=== PATIENT | male | born 1965 | race Caucasian/White ===

== ENCOUNTER 2018-09-27 00:57 | Inpatient (IN) | payer MEDICARE ==
[~2018-09-27] VITALS: Ht 177.8 cm; Wt 104.8 kg
[~2018-09-27 00:57] MED LIST: AMLO5TAB4 PO; BACL10TA PO; DEXT20CA PO; DOCU100C28 PO; ESCITALOPRAM OX10 MG PO; GALA4TAB5 PO; IBUP200T44 PO; LISI-130 PO; LISI1TAB7 PO; METO50TA6 PO; POLY119P4 PO; TIZA4CAP3 PO
--- NOTE | 2018-09-27 01:16 | PHYS DOC ---
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 Patient states that he has had a constant midsternal pressure-like sensation for the past three days. Patient states that the pain radiates to his back and down his right leg. Patient currently rates his pain to be 6/10. Patient states that his chest pain is associated with shortness of breath on exertion. Denies nausea, vomiting, leg pain, and palpitations. Patient has a history of hypertension and has not taken his medication today. Patient states that he has not slept in two days. Patient admits to having suicidal thoughts over the past two days. Patient states that he pulled on his 9mm gun and placed it in his mouth two days ago. Patient reports having the thought of driving his vehicle into a semi-truck this afternoon. Patient currently admits to feeling suicidal. Patient denies having intense suicidal thoughts in the past. Denies homicidal ideation. Patient denies any new life stressors. Patient states that was taking 20mg Adderall twice a day for the past three years. Patient states that he recently saw his primary care physician who lessened his dose to 15mg twice daily as the patient was requesting to come off of Adderall. Patient states that he did not fill the 15mg prescription and has not had any Adderall in six days. No personal or family history of blood clots. Review of Systems Review of Systems Constitutional: Denies fever or chills Eyes: Denies change in visual acuity or eye pain HENT: Denies nasal congestion or sore throat Respiratory: Reports chronic dry cough. Reports shortness of breath. Cardiovascular: Reports chest pain. Denies palpitations. GI: Denies abdominal pain, nausea, vomiting, or diarrhea : Denies dysuria or hematuria Musculoskeletal: Denies joint pain. Reports back pain Integument: Denies rash or skin lesions Neurologic: Denies focal weakness or sensory changes Psychiatric: Reports suicidal ideation. Denies homicidal ideation. Complete systems were reviewed and found to be within normal limits, except as documented in this note. Current Medications Current Medications Current Medications Medications (Trade) Dose Ordered Sig/Danie Start Time Stop Time Status Last Admin Dose Admin Aspirin (Latoya Aspirin) 325 mg 1X ONCE 09/27/18 01:30 09/27/18 01:31 DC 09/27/18 02:06 325 MG Lorazepam (Ativan) 1 mg 1X ONCE 09/27/18 01:45 09/27/18 01:46 DC 09/27/18 02:06 1 MG Sodium Chloride 1,000 ml @ 1,000 mls/hr 1X ONCE 09/27/18 01:45 09/27/18 02:44 DC 09/27/18 02:05 1,000 MLS/HR Allergies Allergies Allergies Coded Allergies Type Severity Reaction Last Updated Verified codeine Allergy Intermediate 12/22/15 Yes Physical Exam Physical Exam Constitutional: Well developed, well nourished, anxious appearing. HENT: Normocephalic, atraumatic, oropharynx moist, nose normal. Eyes: PERRL, EOMI, conjunctiva normal. Neck: Normal range of motion, no tenderness, supple, no stridor. Cardiovascular: Tachycardic. Regular rhythm, no murmur. Distal pulses are intact bilaterally. Lungs & Thorax: Bilateral breath sounds clear to auscultation. No chest wall tenderness on palpation. Abdomen: Soft, no tenderness. No rebound, guarding or rigidity. Skin: Warm, dry, no erythema, no rash. Back: No midline tenderness, no CVA tenderness. Extremities: No tenderness, no cyanosis, ROM intact, no edema. Neurologic: Alert and oriented X3, normal motor function, normal sensory function, no focal deficits noted. Psychologic: Flat affect. Tearful. Patient reports suicidal ideation with plan. Denies homicidal ideation. Current Patient Data Vital Signs Vital Signs Date Time Temp Pulse Resp B/P (MAP) Pulse Ox O2 Delivery O2 Flow Rate FiO2 09/27/18 01:32 98 164/104 (124) Room Air 09/27/18 01:07 98.3 18 99 98.3 Lab Values Laboratory Tests Test 09/27/18 01:15 09/27/18 01:25 White Blood Count 8.8 x10^3/uL (4.0-11.0) Red Blood Count 4.96 x10^6/uL (4.30-5.70) Hemoglobin 16.4 g/dL (13.0-17.5) Hematocrit 45.6 % (39.0-53.0) Mean Corpuscular Volume 92 fL (79-100) Mean Corpuscular Hemoglobin 33 pg (25-35) Mean Corpuscular Hemoglobin Concent 36 g/dL (31-37) Red Cell Distribution Width 12.8 % (11.5-14.5) Platelet Count 233 x10^3/uL (140-400) Neutrophils (%) (Auto) 54 % (31-73) Lymphocytes (%) (Auto) 35 % (24-48) Monocytes (%) (Auto) 8 % (0-9) Eosinophils (%) (Auto) 2 % (0-3) Basophils (%) (Auto) 1 % (0-3) Neutrophils # (Auto) 4.8 x10^3uL (1.8-7.7) Lymphocytes # (Auto) 3.1 x10^3/uL (1.0-4.8) Monocytes # (Auto) 0.7 x10^3/uL (0.0-1.1) Eosinophils # (Auto) 0.2 x10^3/uL (0.0-0.7) Basophils # (Auto) 0.1 x10^3/uL (0.0-0.2) Prothrombin Time 12.3 SEC (11.7-14.0) Prothrombin Time INR 0.9 (0.8-1.1) D-Dimer (Lairssa) 0.36 ug/mlFEU (0.00-0.50) Sodium Level 132 mmol/L (136-145) L Potassium Level 4.0 mmol/L (3.5-5.1) Chloride Level 93 mmol/L (98-107) L Carbon Dioxide Level 22 mmol/L (21-32) Anion Gap 17 (6-14) H Blood Urea Nitrogen 10 mg/dL (8-26) Creatinine 1.0 mg/dL (0.7-1.3) Estimated GFR (Cockcroft-Gault) 78.2 BUN/Creatinine Ratio 10 (6-20) Glucose Level 498 mg/dL (70-99) H Hemoglobin A1c 12.9 % (4.8-5.6) H Calcium Level 8.2 mg/dL (8.5-10.1) L Magnesium Level 2.2 mg/dL (1.8-2.4) Total Bilirubin 0.3 mg/dL (0.2-1.0) Aspartate Amino Transferase (AST) 24 U/L (15-37) Alanine Aminotransferase (ALT) 26 U/L (16-63) Alkaline Phosphatase 86 U/L (46-116) Creatine Kinase 113 U/L (39-308) Creatine Kinase MB (Mass) 1.5 ng/mL (0.0-3.6) Creatine Kinase MB Relative Index 1.3 % (0-4) Troponin I Quantitative < 0.017 ng/mL (0.000-0.055) IN-Mrr-X-Type Natriuretic Peptide 31 pg/mL (0-124) Total Protein 7.0 g/dL (6.4-8.2) Albumin 3.6 g/dL (3.4-5.0) Albumin/Globulin Ratio 1.1 (1.0-1.7) Lipase 195 U/L (73-393) Salicylates Level 4.3 mg/dL (2.8-20.0) Salicylate Last Dose Date Unk Salicylate Last Dose Time Unk Acetaminophen Level < 2 mcg/ml (10-30) L Acetaminophen Last Dose Date Unk Acetaminophen Last Dose Time Unk Ethyl Alcohol Level < 10 mg/dL (0-10) Urine Collection Type Unknown Urine Color Yellow Urine Clarity Clear Urine pH 6.0 Urine Specific [place] >=1.030 Urine Protein Negative mg/dL (NEG-TRACE) Urine Glucose (UA) >=1000 mg/dL (NEG) Urine Ketones (Stick) Negative mg/dL (NEG) Urine Blood Negative (NEG) Urine Nitrite Negative (NEG) Urine Bilirubin Negative (NEG) Urine Urobilinogen Dipstick 0.2 mg/dL (0.2 mg/dL) Urine Leukocyte Esterase Negative (NEG) Urine RBC 0 /HPF (0-2) Urine WBC 0 /HPF (0-4) Urine Squamous Epithelial Cells Few /LPF Urine Bacteria 0 /HPF (0-FEW) Urine Opiates Screen Neg (NEG) Urine Methadone Screen Neg (NEG) Urine Barbiturates Neg (NEG) Urine Phencyclidine Screen Neg (NEG) Urine Amphetamine/Methamphetamine Neg (NEG) Urine Benzodiazepines Screen Neg (NEG) Urine Cocaine Screen Neg (NEG) Urine Cannabinoids Screen Neg (NEG) Urine Ethyl Alcohol Neg (NEG) Laboratory Tests 09/27/18 01:15 Laboratory Tests 09/27/18 01:15 EKG EKG @0107 Sinus tachycardia at 105bpm, NO ST elevation, Low voltage QRS. No significant change when compared to ECG performed on 07/12/17. Radiology/Procedures Radiology/Procedures PROCEDURE: CHEST PA & LATERAL EXAM: PA and Lateral Views of the Chest DATE: 09/27/2018 2:01 AM INDICATION: CHEST PAIN. COMPARISON: 07/12/2017 FINDINGS: The heart is not enlarged. Mediastinal and hilar contours are normal. No focal parenchymal airspace opacity. No pleural effusion or pneumothorax. IMPRESSION: 1. No radiographic evidence for acute cardiopulmonary process. Electronically signed by: Russ Alberto MD (09/27/2018 6:36 AM) [facility] Course & Med Decision Making Course & Med Decision Making Patient is a 53 year old male who presents to the ED for evaluation of chest pain and suicidal ideation. Upon arrival to the ED, patient admits to feeling actively suicidal with a plan to shoot himself or drive himself into a semi- truck. Patient does admit to placing his 9mm gun in his mouth two days ago. Suicide precautions initiated. Patient is anxious on exam. 1mg Ativan administered. Consult to PAT placed. 325mg Aspirin PO administered. Pertinent Labs and Imaging studies reviewed. ( See chart for details). Troponin is negative. Patient is noted to be hyperglycemia with a glucose of 498. 10 units of insulin and fluids ordered. D- dimer returned negative. Based on patient's risk factors (HEART score 4), the decision was made to admit the patient to the hospital. Patient requiring admission for further evaluation and treatment. Discussed with Dr. Osei (hospitalist) who is in agreement with admission. Discussed findings and plan with patient and family, who acknowledge understanding and agreement. Dragon Disclaimer Dragon Disclaimer This electronic medical record was generated, in whole or in part, using a voice recognition dictation system. Departure Departure Impression: Primary Impression: Suicidal ideation Additional Impressions: Chest pain Hyperglycemia Disposition: 09 ADMITTED INPATIENT Admitting Physician: Other (Cyndyl) Condition: STABLE Referrals: ESTHER PARKER MD (PCP) Problem Qualifiers Additional Impressions: Chest pain Chest pain type: unspecified Qualified Codes: R07.9 - Chest pain, unspecified IRMA AG DO Sep 27, 2018 01:16
[2018-09-27 01:28] LABS: BASO # 0.1 x10^3/uL (0.0-0.2); BASO % 1 % (0-3); EOS # 0.2 x10^3/uL (0.0-0.7); EOS % 2 % (0-3); HEMATOCRIT 45.6 % (39.0-53.0); HEMOGLOBIN 16.4 g/dL (13.0-17.5); LYMPH # 3.1 x10^3/uL (1.0-4.8); LYMPH % 35 % (24-48); MEAN CORPUSCULAR HEMOGLOBIN 33 pg (25-35); MEAN CORPUSCULAR HGB CONC 36 g/dL (31-37); MEAN CORPUSCULAR VOLUME 92 fL (79-100); MONO # 0.7 x10^3/uL (0.0-1.1); MONO % 8 % (0-9); NEUT # 4.8 x10^3uL (1.8-7.7); NEUT % 54 % (31-73); PLATELET COUNT 233 x10^3/uL (140-400); RED BLOOD COUNT 4.96 x10^6/uL (4.30-5.70); RED CELL DISTRIBUTION WIDTH 12.8 % (11.5-14.5); WHITE BLOOD COUNT 8.8 x10^3/uL (4.0-11.0)
[2018-09-27] MEDS ORDERED: ASPIRIN 325 MG TABLET PO ONE (01:30)
[2018-09-27 01:38] LABS: CALCIUM 8.2 mg/dL (8.5-10.1); GFR 78.2
[2018-09-27 01:40] LABS: BILIRUBIN,URINE NEGATIVE (NEG); CLARITY,URINE CLEAR; COLOR,URINE YELLOW; NITRITE,URINE NEGATIVE (NEG); PROTEIN,URINE NEGATIVE (NEG-TRACE); UROBILINOGEN,URINE 0.2 mg/dL (0.2 mg/dL)
[2018-09-27 01:40] LABS: PROTHROMBIN TIME PATIENT 12.3 SEC (11.7-14.0)
[2018-09-27 01:44] LABS: ALBUMIN 3.6 g/dL (3.4-5.0); ALBUMIN/GLOBULIN RATIO 1.1 (1.0-1.7); MAGNESIUM 2.2 mg/dL (1.8-2.4); TOTAL BILIRUBIN 0.3 mg/dL (0.2-1.0)
[2018-09-27] MEDS ORDERED: IV NORMAL SALINE 1000ML BAG 1,000 ML IV ONE (01:45)
[2018-09-27 01:46] LABS: BARBITURATES NEG (NEG); BENZODIAZEPINES NEG (NEG); CANNABINOIDS NEG (NEG); COCAINE NEG (NEG); METHADONE NEG (NEG); OPIATES NEG (NEG); PHENCYCLIDINE NEG (NEG)
[2018-09-27 01:47] LABS: AMPHETAMINE/METHAMPHETAMINE NEG (NEG)
[2018-09-27 01:53] LABS: ACETAMIN < 2 mcg/ml (10-30); ETHANOL < 10 mg/dL (0-10); SALIC 4.3 mg/dL (2.8-20.0)
[2018-09-27 02:00] LABS: BACTERIA,URINE 0 /HPF (0-FEW); RBC,URINE 0 /HPF (0-2); SQUAMOUS EPITHELIAL CELL,UR FEW /LPF; WBC,URINE 0 /HPF (0-4)
[2018-09-27] MEDS ORDERED: ONDANSETRON PF 4 MG/2 ML VIAL. IV PRN (02:00)
[2018-09-27] MEDS ORDERED: DEXTROSE 50% 25 GM / 50ML DISP.SYRIN. IV PRN (02:15)
[2018-09-27] MEDS ORDERED: INSULIN REGULAR 100 UNIT/ML 3ML VIAL. SQ ONE (02:15)
[2018-09-27 03:00] VITALS: BP 169/98
[2018-09-27] MEDS ORDERED: CITA20TA6 PO (03:38)
[2018-09-27] MEDS ORDERED: LORazepam 0.5 MG TABLET PO PRN (04:00)
[2018-09-27] MEDS ORDERED: CYCLOBENZAPRINE 10 MG TABLET. PO PRN (04:00)
[2018-09-27] MEDS ORDERED: ACETAMINOPHEN 325 MG TABLET. PO PRN (04:00)
[2018-09-27] MEDS: HYDROcodone/APAP 5/325MG 1 TAB TABLET PO PRN ×2 (04:38→08:28)
--- NOTE | 2018-09-27 06:39 | RAD ---
EXAM: PA and Lateral Views of the Chest DATE: 09/27/2018 2:01 AM INDICATION: CHEST PAIN. COMPARISON: 07/12/2017 FINDINGS: The heart is not enlarged. Mediastinal and hilar contours are normal. No focal parenchymal airspace opacity. No pleural effusion or pneumothorax. IMPRESSION: 1. No radiographic evidence for acute cardiopulmonary process. Electronically signed by: Russ Alberto MD (09/27/2018 6:36 AM) [facility]
[2018-09-27 07:00] VITALS: BP 140/76
--- NOTE | 2018-09-27 07:34 | EKG ---
[facility] [address] [place] [address] Test Date: 2018-09-27 Test Time: 01:07:15 Pat Name: FEMI MEDELLIN Department: Room: 4 1 Gender: M [employer]: CHERYLE : 1965 Requested By: IRMA AG Order Number: [id number] Reading MD: Johan Landis MD Measurements Intervals [place] Rate: 105 P: 49 OK: 148 QRS: 48 QRSD: 88 T: 60 QT: 326 QTc: 435 Interpretive Statements SINUS TACHYCARDIA Electronically Signed On 09-27-2018 15:36:14 CDT by Johan Landis MD
[2018-09-27] MEDS: INSULIN LISPRO 300 UNITS/3 ML INSULN.PEN. SQ SCH ×3 (08:00→17:37)
[2018-09-27 08:29] LABS: CHOLESTEROL 221 mg/dL (0-200); HDLC 22 mg/dL (40-60)
[2018-09-27 08:50] LABS: TRIGLYCERIDES 875 mg/dL (0-150); VLDLC 175 mg/dL (0-40)
--- NOTE | 2018-09-27 08:56 | PDOC2 ---
NATALIIA HALL DRILL PRESS OPERATOR 09/27/18 0856: CARDIAC CONSULT DATE OF CONSULT Date of Consult DATE: 09/27/18 TIME: 08:50 REASON FOR CONSULT Reason for Consult: Chest pain REFERRING PHYSICIAN Referring Physician: Dr. Talley SOURCE Source: Chart review, Patient HISTORY OF PRESENT ILLNESS HISTORY OF PRESENT ILLNESS This is a 53 yo male who presented with complaints of chest pain. Patient reports pain has been constant for the last 3 days. Located across his central chest. Describes as heaviness/pressure. Associated with shortness of breath. No dizziness, diaphoresis, palpitations or LE edema. No specific exacerbating or relieving factors. Pain has nearly resolved since hospitalization. Does have a history of hypertension. Did not take his antihypertensives prior to arrival, but reports compliance with these usually. Also report suicidal ideations. Has not slept in a couple of days. Denies any previous SI. Patient reports that he has been on Adderall 20mg BID for the past three years. PCP recently lowered dose to 15mg BID as patient requested he would like to come off Adderall. He did not get new prescription filled and has not had any Adderall in nearly a week. PAST MEDICAL HISTORY Past Medical History Cardiovascular: HTN, Hyperlipidemia, Other (PFO) Pulmonary: DANNA- noncompliant with CPAP CENTRAL NERVOUS SYSTEM: CVA, seizures GI: Diverticulosis Heme/Onc: Cancer (testicular) Psych: Other (OCD; alcoholism; conversion disorder?; ADHD, depression, anxiety) Musculoskeletal: low back pain, Osteoarthritis, Other (sciatica; spinal stenosis) Rheumatologic: No pertinent hx Infectious disease: No pertinent hx ENT: No pertinent hx Renal/: Urinary Incontinence Endocrine: No pertinent hx Dermatology: No pertinent hx PAST SURGICAL HISTORY Past Surgical History Other (orchiectomy) FAMILY HISTORY Family History: Coronary Artery Disease (mother, father), Other ( noncontributory ) SOCIAL HISTORY Social History Smoke: 1 pack per day ALCOHOL: none (quit 6 months ago) Drugs: None Lives: with Family CURRENT MEDICATIONS CURRENT MEDICATIONS Current Medications Medications (Trade) Dose Ordered Sig/Danie Route PRN Reason Start Time Stop Time Status Last Admin Dose Admin Aspirin (Latoya Aspirin) 325 mg 1X ONCE PO 09/27/18 01:30 09/27/18 01:31 DC 09/27/18 02:06 Sodium Chloride 1,000 ml @ 1,000 mls/hr 1X ONCE IV 09/27/18 01:45 09/27/18 02:44 DC 09/27/18 02:05 Lorazepam (Ativan) 1 mg 1X ONCE IV 09/27/18 01:45 09/27/18 01:46 DC 09/27/18 02:06 Insulin Human Regular (HumuLIN R VIAL) 10 unit 1X ONCE SQ 09/27/18 02:15 09/27/18 02:16 DC 09/27/18 02:09 Acetaminophen/ Hydrocodone Bitart (Lortab 5/325) 1 tab PRN Q4HRS PRN PO PAIN 09/27/18 04:00 09/27/18 08:28 Lorazepam (Ativan) 0.5 mg PRN Q6HRS PRN PO ANXIETY / AGITATION 09/27/18 04:00 09/27/18 04:37 ALLERGIES ALLERGIES: Coded Allergies: codeine (Verified Allergy, Intermediate, 12/22/15) ROS Review of System 14 point ROS conducted with pertinent positives noted above in HPI. PHYSICAL EXAM PHYSICAL EXAM General: Alert, Oriented X3, Cooperative, No acute distress HEENT: Atraumatic, Mucous membr. moist/pink Lungs: Other (upper rhonchi) Heart: Regular rate (SR), Normal S1, Normal S2 Abdomen: Soft, No tenderness Extremities: No cyanosis, No edema Skin: No breakdown, No significant lesion Neuro: Normal speech, Sensation intact Psych/Mental Status: Mental status NL, Mood NL MUSCULOSKELETAL: Osteoarthritic changes both hands VITALS VITALS Vital Signs Date Time Temp Pulse Resp B/P (MAP) Pulse Ox O2 Delivery O2 Flow Rate FiO2 09/27/18 08:28 Room Air 09/27/18 07:00 98.0 85 18 140/76 (97) 90 98.0 LABS Lab: Laboratory Tests Test 09/27/18 01:15 09/27/18 01:25 09/27/18 05:00 09/27/18 08:26 White Blood Count 8.8 x10^3/uL (4.0-11.0) Red Blood Count 4.96 x10^6/uL (4.30-5.70) Hemoglobin 16.4 g/dL (13.0-17.5) Hematocrit 45.6 % (39.0-53.0) Mean Corpuscular Volume 92 fL (79-100) Mean Corpuscular Hemoglobin 33 pg (25-35) Mean Corpuscular Hemoglobin Concent 36 g/dL (31-37) Red Cell Distribution Width 12.8 % (11.5-14.5) Platelet Count 233 x10^3/uL (140-400) Neutrophils (%) (Auto) 54 % (31-73) Lymphocytes (%) (Auto) 35 % (24-48) Monocytes (%) (Auto) 8 % (0-9) Eosinophils (%) (Auto) 2 % (0-3) Basophils (%) (Auto) 1 % (0-3) Neutrophils # (Auto) 4.8 x10^3uL (1.8-7.7) Lymphocytes # (Auto) 3.1 x10^3/uL (1.0-4.8) Monocytes # (Auto) 0.7 x10^3/uL (0.0-1.1) Eosinophils # (Auto) 0.2 x10^3/uL (0.0-0.7) Basophils # (Auto) 0.1 x10^3/uL (0.0-0.2) Prothrombin Time 12.3 SEC (11.7-14.0) Prothromb Time International Ratio 0.9 (0.8-1.1) D-Dimer (Larissa) 0.36 ug/mlFEU (0.00-0.50) Sodium Level 132 mmol/L (136-145) Potassium Level 4.0 mmol/L (3.5-5.1) Chloride Level 93 mmol/L (98-107) Carbon Dioxide Level 22 mmol/L (21-32) Anion Gap 17 (6-14) Blood Urea Nitrogen 10 mg/dL (8-26) Creatinine 1.0 mg/dL (0.7-1.3) Estimated GFR (Cockcroft-Gault) 78.2 BUN/Creatinine Ratio 10 (6-20) Glucose Level 498 mg/dL (70-99) Calcium Level 8.2 mg/dL (8.5-10.1) Magnesium Level 2.2 mg/dL (1.8-2.4) Total Bilirubin 0.3 mg/dL (0.2-1.0) Aspartate Amino Transf (AST/SGOT) 24 U/L (15-37) Alanine Aminotransferase (ALT/SGPT) 26 U/L (16-63) Alkaline Phosphatase 86 U/L (46-116) Creatine Kinase 113 U/L (39-308) Creatine Kinase MB (Mass) 1.5 ng/mL (0.0-3.6) Creatine Kinase MB Relative Index 1.3 % (0-4) Troponin I Quantitative < 0.017 ng/mL (0.000-0.055) < 0.017 ng/mL (0.000-0.055) WO-Wov-Y-Type Natriuretic Peptide 31 pg/mL (0-124) Total Protein 7.0 g/dL (6.4-8.2) Albumin 3.6 g/dL (3.4-5.0) Albumin/Globulin Ratio 1.1 (1.0-1.7) Lipase 195 U/L (73-393) Salicylates Level 4.3 mg/dL (2.8-20.0) Salicylate Last Dose Date Unk Salicylate Last Dose Time Unk Acetaminophen Level < 2 mcg/ml (10-30) Acetaminophen Last Dose Date Unk Acetaminophen Last Dose Time Unk Ethyl Alcohol Level < 10 mg/dL (0-10) Urine Collection Type Unknown Urine Color Yellow Urine Clarity Clear Urine pH 6.0 Urine Specific [place] >=1.030 Urine Protein Negative mg/dL (NEG-TRACE) Urine Glucose (UA) >=1000 mg/dL (NEG) Urine Ketones (Stick) Negative mg/dL (NEG) Urine Blood Negative (NEG) Urine Nitrite Negative (NEG) Urine Bilirubin Negative (NEG) Urine Urobilinogen Dipstick 0.2 mg/dL (0.2 mg/dL) Urine Leukocyte Esterase Negative (NEG) Urine RBC 0 /HPF (0-2) Urine WBC 0 /HPF (0-4) Urine Squamous Epithelial Cells Few /LPF Urine Bacteria 0 /HPF (0-FEW) Urine Opiates Screen Neg (NEG) Urine Methadone Screen Neg (NEG) Urine Barbiturates Neg (NEG) Urine Phencyclidine Screen Neg (NEG) Urine Amphetamine/Methamphetamine Neg (NEG) Urine Benzodiazepines Screen Neg (NEG) Urine Cocaine Screen Neg (NEG) Urine Cannabinoids Screen Neg (NEG) Urine Ethyl Alcohol Neg (NEG) Triglycerides Level 898 mg/dL (0-150) Cholesterol Level 221 mg/dL (0-200) LDL Cholesterol, Calculated mg/dL (0-100) VLDL Cholesterol, Calculated 180 mg/dL (0-40) Non-HDL Cholesterol Calculated 199 mg/dL (0-129) HDL Cholesterol 22 mg/dL (40-60) Cholesterol/HDL Ratio 10.0 Glucose (Fingerstick) 249 mg/dL (70-99) ECHOCARDIOGRAM ECHOCARDIOGRAM <Conclusion> The left ventricle is normal size. The left ventricular systolic function is normal and the ejection fraction is within normal range. LV ejection fraction is 55-60%. There is no significant aortic valvular stenosis. Doppler and Color Flow revealed no significant aortic regurgitation. Doppler and Color-flow revealed trace mitral regurgitation. Doppler and Color Flow revealed trace to mild tricuspid regurgitation. DATE: 07/13/17 1449 ASSESSMENT/PLAN ASSESSMENT/PLAN 1. Chest pain, mixed feature. Trop series normal- AMI ruled out. Possibly related to #2 2. Malignant HTN; now better controlled 3. SI; PAT following 4. Hyperlipidemia 5. DM, II (new) 6. Hx of PFO 7. Hx of ADHD; discontinued Adderall last week 8. Tobaccoism; discussed/encouraged cessations Recommendations Lipids Echo to assess LV systolic function BP control Resume ACEi; uptitrate as warranted. May add Norvasc if BP remains elevated D/c BB due to depression/SI Consider outpatient ischemic evaluation given risk factors OMID LAMB MD 09/27/18 1620: CARDIAC CONSULT ASSESSMENT/PLAN ASSESSMENT/PLAN Pt. seen and examined. Agree with above HOSPITAL LIAISON note. Needs aggressive risk factor modification after acute issues of SI resolved. F/u in the office. Thanks. NATALIIA HALL APRN Sep 27, 2018 08:56 OMID LAMB MD Sep 27, 2018 16:20
--- NOTE | 2018-09-27 10:12 | CARD ---
MR#: [id number] Date of Study: 09/27/2018 Ordering Physician: NATALIIA HALL, Referring Physician: VALENTIN BECKER, Tech: Justina Dowd RUBY APPROVED REPORT EXAM: Two-dimensional and M-mode echocardiogram with Doppler and color Doppler. Other Information Quality : Fair INDICATION Chest Pain 2D DIMENSIONS RVDd2.6 (2.9-3.5cm)Left Atrium(2D)3.8 (1.6-4.0cm) IVSd1.2 (0.7-1.1cm)Aortic Root(2D)3.0 (2.0-3.7cm) LVDd4.8 (3.9-5.9cm)LVOT Diameter2.0 (1.8-2.4cm) PWd1.2 (0.7-1.1cm)LVDs3.1 (2.5-4.0cm) FS (%) 35.8 %SV70.8 ml LVEF(%)60.0 (>50%) Aortic Valve AoV Peak Aaron.157.1cm/sAoV VTI24.7cm AO Peak GR.9.9mmHgLVOT Peak Aaron.118.5cm/s AO Mean GR.5mmHgAVA (VMAX)2.26cm2 IDRIS (VTI)2.60cm2 Mitral Valve MV E Yhdrnitk84.0cm/sMV DECEL [id number] MV A Phsvcmbs09.8cm/sE/A Ratio1.3 Pulmonary Vein S1 Zxmfuwzi55.5cm/sD2 Rdzufezq36.5cm/s LEFT VENTRICLE The left ventricle is normal size. There is mild concentric left ventricular hypertrophy. The left ve ntricular systolic function is normal and the ejection fraction is within normal range. The Ejection Fraction is 60-65%. There is normal LV segmental wall motion. Transmitral Doppler flow pattern is Gra de I-abnormal relaxation pattern. RIGHT VENTRICLE The right ventricle is normal size. The right ventricular systolic function is normal. ATRIA Not well visualized. Atrial septum is not well visualized. AORTIC VALVE The aortic valve is calcified but opens well. Doppler and Color Flow revealed no significant aortic r egurgitation. There is no significant aortic valvular stenosis. MITRAL VALVE The mitral valve is normal in structure and function. There is no evidence of mitral valve prolapse. There is no mitral valve stenosis. Doppler and Color Flow revealed no mitral valve regurgitation note d. TRICUSPID VALVE The tricuspid valve is normal in structure and function. Doppler and Color Flow revealed no tricuspid valve regurgitation noted. There is no tricuspid valve stenosis. PULMONIC VALVE The pulmonic valve is not well visualized. Doppler and Color Flow revealed no pulmonic valvular regur gitation. There is no pulmonic valvular stenosis. GREAT VESSELS The aortic root is normal in size. The ascending aorta is normal in size. The IVC is normal in size a nd collapses >50% with inspiration. PERICARDIAL EFFUSION There is no evidence of significant pericardial effusion. Critical Notification Critical Value: No <Conclusion> The left ventricular systolic function is normal and the ejection fraction is within normal range. Th e Ejection Fraction is 60-65%. There is grossly normal LV segmental wall motion. Technically difficult study Signed by : Johan Landis, Electronically Approved : 09/27/2018 10:12:08
[2018-09-27 11:00] VITALS: BP 137/91
[2018-09-27] MEDS ORDERED: DOCUSATE SODIUM 100 MG CAPSULE. PO PRN (11:15)
--- NOTE | 2018-09-27 11:23 | HP ---
ADMIT DATE: 09/27/2018 CHIEF COMPLAINT: Suicidal ideation and chest pain. HISTORY OF PRESENT ILLNESS: The patient is a pleasant middle-aged white male who quit taking his psych meds. He states he has been out of his Adderall for some time, but does not really want to take it. He has been having some suicidal ideation. He put the gun in his mouth, did not pull the trigger obviously, but now he presents to the ER with chest pain, rates it at 6/10. He has associated anxiety, describes as midsternal chest pain. He tried increasing some of his [id number] meds, but that did not seem to help. He thinks he might just really need to be back on his Adderall, but at the same time, he just really does not want to take it. He has been a little short of breath and his blood pressure has been high as well. I discussed the case with ER physician. We are going to admit the patient and consult Cardiology and the Psychiatric assessment team. PAST MEDICAL HISTORY: Stroke, depression, anxiety, ADHD, hypertension, seizures, TIA, back pain, toe amputation, benign neck tumor, tobacco abuse, previous alcoholism but he quit drinking a year ago. ALLERGIES: CODEINE. FAMILY HISTORY: Coronary artery disease. SOCIAL HISTORY: He quit drinking. He still smokes. No drugs. MEDICATIONS: Reviewed. He is on metoprolol, lisinopril, citalopram, docusate and MiraLax and I think he is supposed to be on Adderall, but states he really does not want to take it. REVIEW OF SYSTEMS: GENERAL: No history of weight change, weakness or fevers. SKIN: No bruising, hair changes or rashes. EYES: No blurred, double or loss of vision. NOSE AND THROAT: No history of nosebleeds, hoarseness or sore throat. HEART: No history of palpitations, chest pain or shortness of breath on exertion. LUNGS: Denies cough, hemoptysis, wheezing or shortness of breath. GASTROINTESTINAL: Denies changes in appetite, nausea, vomiting, diarrhea or constipation. GENITOURINARY: No history of frequency, urgency, hesitancy or nocturia. NEUROLOGIC: He complains of weakness. PSYCHIATRIC: He complains of depression and suicidal ideation (he states the suicidal ideation started when he quit taking his Adderall). ENDOCRINE: No history of heat or cold intolerance, polyuria or polydipsia. EXTREMITIES: Denies muscle weakness, joint pain, pain on walking or stiffness. PHYSICAL EXAMINATION: VITAL SIGNS: Temperature is afebrile, pulse 90, respirations 18, blood pressure 160/94. GENERAL: He is alert, cooperative, pleasant. Has a little bit diaphoresis, has a 1:1 observer in the room. HEART: Normal S1, S2. LUNGS: Clear to auscultation. ABDOMEN: Soft, positive bowel sounds. EXTREMITIES: Trace edema. SKIN: No rash. ENDOCRINE: No thyromegaly. LYMPHATICS: No cervical nodes. HEMATOPOIETIC: No bruising. PSYCHIATRIC: He is stable. He denies suicidal ideation currently at this exact moment. LABORATORY DATA: Triglycerides are high at 875. Total cholesterol high at 221. Hematology is normal. Electrolytes are pending. Troponin is 0. INR is 0.9. Drug screen negative. Urinalysis negative. Chest x-ray negative. ASSESSMENT AND PLAN: Chest pain in a middle-aged male who is also having thoughts of suicide. We need to do a full cardiac workup and then get him to inpatient psych unit. We have consulted the Psychiatric assessment team. We have consulted Cardiology. Check echocardiogram, serial enzymes, serial EKGs, cardiac monitoring. DVT prophylaxis. Full code. Home meds, frequent labs. 1:1 observation. PROGNOSIS: Guarded. TOTAL TIME: 32 minutes. HERMANN AHMADI DO DR: JUAQUIN/skyler JOB#: [id number] / [id number]
[2018-09-27] MEDS: CITALOPRAM 20 MG TABLET. PO SCH (12:13)
[2018-09-27] MEDS: FLUoxetine HCL 20 MG CAPSULE PO SCH (12:14)
[2018-09-27] MEDS: LORazepam 1 MG TABLET PO PRN ×2 (12:14→21:42)
[2018-09-27] MEDS: hydroCHLOROthiazide 25 MG TABLET PO SCH (12:14)
[2018-09-27] MEDS ORDERED: LISINOPRIL 20 MG TABLET PO SCH (12:30)
[2018-09-27 19:00] VITALS: BP 142/89
[2018-09-27] MEDS ORDERED: METOPROLOL TART IMMED RELEASE 50 MG TABLET. PO SCH (21:00)
[2018-09-27] MEDS: AMPHETAMINE PO SCH (21:00)
[2018-09-27] MEDS: DEXTROAMPHETAMINE PO SCH (21:00)
[2018-09-27] MEDS: [UNRECOGNIZED DRUG - OTHER] PO SCH (21:00)
[2018-09-27] MEDS ORDERED: INSULIN LISPRO 300 UNITS/3 ML INSULN.PEN. SQ ONE (21:45)
[2018-09-27 23:09] VITALS: BP 112/55
[2018-09-28 00:13] LABS: HEMOGLOBIN A1C 12.9 % (4.8-5.6)
[2018-09-28 02:49] VITALS: BP 146/96
[2018-09-28 05:21] LABS: BASO # 0.1 x10^3/uL (0.0-0.2); BASO % 1 % (0-3); EOS # 0.2 x10^3/uL (0.0-0.7); EOS % 3 % (0-3); HEMATOCRIT 46.1 % (39.0-53.0); HEMOGLOBIN 15.9 g/dL (13.0-17.5); LYMPH # 2.4 x10^3/uL (1.0-4.8); LYMPH % 32 % (24-48); MEAN CORPUSCULAR HEMOGLOBIN 32 pg (25-35); MEAN CORPUSCULAR HGB CONC 34 g/dL (31-37); MEAN CORPUSCULAR VOLUME 94 fL (79-100); MONO # 0.6 x10^3/uL (0.0-1.1); MONO % 8 % (0-9); NEUT # 4.3 x10^3uL (1.8-7.7); NEUT % 56 % (31-73); PLATELET COUNT 207 x10^3/uL (140-400); RED CELL DISTRIBUTION WIDTH 13.1 % (11.5-14.5); WHITE BLOOD COUNT 7.6 x10^3/uL (4.0-11.0)
[2018-09-28 05:55] LABS: CALCIUM 8.2 mg/dL (8.5-10.1); CREATININE 0.9 mg/dL (0.7-1.3); GFR 88.3; POTASSIUM 3.4 mmol/L (3.5-5.1)
[2018-09-28 06:55] VITALS: BP 147/91
[2018-09-28] MEDS: LORazepam 1 MG TABLET PO PRN ×2 (06:56→21:22)
[2018-09-28] MEDS: INSULIN LISPRO 300 UNITS/3 ML INSULN.PEN. SQ SCH ×3 (08:06→17:00)
[2018-09-28] MEDS: CITALOPRAM 20 MG TABLET. PO SCH (08:08)
[2018-09-28] MEDS: FLUoxetine HCL 20 MG CAPSULE PO SCH (08:08)
[2018-09-28] MEDS: HYDROcodone/APAP 5/325MG 1 TAB TABLET PO PRN ×2 (08:35→21:23)
[2018-09-28] MEDS ORDERED: POLYETHYLENE GLYCOL 3350 17 GM PACKET. PO PRN (09:00)
[2018-09-28] MEDS: [UNRECOGNIZED DRUG - OTHER] PO SCH ×2 (09:00→21:00)
[2018-09-28] MEDS: DEXTROAMPHETAMINE PO SCH ×2 (09:00→21:00)
[2018-09-28] MEDS: AMPHETAMINE PO SCH ×2 (09:00→21:00)
[2018-09-28] MEDS: hydroCHLOROthiazide 25 MG TABLET PO SCH (09:06)
[2018-09-28] MEDS: LISINOPRIL 20 MG TABLET PO SCH (09:07)
--- NOTE | 2018-09-28 09:39 | PDOC ---
PROGRESS NOTES Chief Complaint Chief Complaint Patient states that he pulled on his 9mm gun and placed it in his mouth on 09/23 . Patient reports having the thought of driving his vehicle into a semi-truck THURSDAY. Patient IN ER admits to feeling suicidal. Patient denies having intense suicidal thoughts in the past. pat team is working on placement in [place] HE states his is causing most of his stress. she has mental illness, legal issues, and her son is not respectful to him, he is 12 yrs old STATES HE IS MORE Depressed since his PCP stopped his adderall recently History of Present Illness History of Present Illness ASSESSMENT AND PLAN: Chest pain suicide.ideation at high risk of completing suicide morbid obesity hypokalemia past hx alcohol abuse, stopped in 2018 UNCONTROLLED DIABETES plan replace k cardiac evaluation needs inpatient psych unit. consulted the Psychiatric assessment team. consulted Cardiology. echocardiogram, ok serial enzymes, serial EKGs, cardiac monitoring. DVT prophylaxis. Full code. Home meds, frequent labs. 1:1 observation.continue Lipids LANTUS INSULIN 10 UNITS SQ HS, BEGIN BP control ACEi; uptitrate as warranted. add Norvasc if BP remains elevated D/c metoprolol outpatient ischemic evaluation given risk factors PROGNOSIS: Guarded.given MAJOR DEPRESSION, SI Vitals Vitals Vital Signs Date Time Temp Pulse Resp B/P (MAP) Pulse Ox O2 Delivery O2 Flow Rate FiO2 09/28/18 09:07 79 137/77 09/28/18 08:35 97 Room Air 09/28/18 06:55 18 09/28/18 02:49 97.7 97.7 Physical Exam Physical Exam :1 observer in the room. HEART: Normal S1, S2. LUNGS: Clear to auscultation. ABDOMEN: Soft, positive bowel sounds. EXTREMITIES: Trace edema. SKIN: No rash. ENDOCRINE: No thyromegaly. LYMPHATICS: No cervical nodes. HEMATOPOIETIC: No bruising. PSYCHIATRIC: denies suicidal ideation currently General: Alert, Oriented X3, Cooperative, mild distress Heart: Regular rate, Normal S1, Normal S2 Lungs: Crackles Abdomen: Normal bowel sounds, Soft, No hepatosplenomegaly Extremities: No cyanosis Skin: No rashes, No breakdown, No significant lesion Labs LABS LEFT VENTRICLE The left ventricle is normal size. There is mild concentric left ventricular hypertrophy. The left ventricular systolic function is normal and the ejection fraction is within normal range. The Ejection Fraction is 60-65%. There is normal LV segmental wall motion. Transmitral Doppler flow pattern is Grade I- abnormal relaxation pattern. RIGHT VENTRICLE The right ventricle is normal size. The right ventricular systolic function is normal. ATRIA Not well visualized. Atrial septum is not well visualized. AORTIC VALVE The aortic valve is calcified but opens well. Doppler and Color Flow revealed no significant aortic regurgitation. There is no significant aortic valvular stenosis. MITRAL VALVE The mitral valve is normal in structure and function. There is no evidence of mitral valve prolapse. There is no mitral valve stenosis. Doppler and Color Flow revealed no mitral valve regurgitation noted. TRICUSPID VALVE The tricuspid valve is normal in structure and function. Doppler and Color Flow revealed no tricuspid valve regurgitation noted. There is no tricuspid valve stenosis. PULMONIC VALVE The pulmonic valve is not well visualized. Doppler and Color Flow revealed no pulmonic valvular regurgitation. There is no pulmonic valvular stenosis. GREAT VESSELS The aortic root is normal in size. The ascending aorta is normal in size. The IVC is normal in size and collapses >50% with inspiration. PERICARDIAL EFFUSION There is no evidence of significant pericardial effusion. Critical Notification Critical Value: No <Conclusion> The left ventricular systolic function is normal and the ejection fraction is within normal range. The Ejection Fraction is 60-65%. There is grossly normal LV segmental wall motion. Technically difficult study Signed by : Omid Landis, Electronically Approved : 09/27/2018 10:12:08 DICTATED and SIGNED BY: OMID LANDIS MD DATE: 09/27/18 1012 [id number] 0 [id number] CC: OMID LANDIS MD; NATALIIA HALL APRN; VALENTIN BECKER MD; ESTHER PARKER MD ~ Page of Laboratory Tests Test 09/27/18 11:36 09/27/18 17:02 09/27/18 21:13 09/28/18 00:11 Glucose (Fingerstick) 316 mg/dL (70-99) 288 mg/dL (70-99) 418 mg/dL (70-99) 356 mg/dL (70-99) Test 09/28/18 03:25 White Blood Count 7.6 x10^3/uL (4.0-11.0) Red Blood Count 4.90 x10^6/uL (4.30-5.70) Hemoglobin 15.9 g/dL (13.0-17.5) Hematocrit 46.1 % (39.0-53.0) Mean Corpuscular Volume 94 fL (79-100) Mean Corpuscular Hemoglobin 32 pg (25-35) Mean Corpuscular Hemoglobin Concent 34 g/dL (31-37) Red Cell Distribution Width 13.1 % (11.5-14.5) Platelet Count 207 x10^3/uL (140-400) Neutrophils (%) (Auto) 56 % (31-73) Lymphocytes (%) (Auto) 32 % (24-48) Monocytes (%) (Auto) 8 % (0-9) Eosinophils (%) (Auto) 3 % (0-3) Basophils (%) (Auto) 1 % (0-3) Neutrophils # (Auto) 4.3 x10^3uL (1.8-7.7) Lymphocytes # (Auto) 2.4 x10^3/uL (1.0-4.8) Monocytes # (Auto) 0.6 x10^3/uL (0.0-1.1) Eosinophils # (Auto) 0.2 x10^3/uL (0.0-0.7) Basophils # (Auto) 0.1 x10^3/uL (0.0-0.2) Sodium Level 135 mmol/L (136-145) Potassium Level 3.4 mmol/L (3.5-5.1) Chloride Level 97 mmol/L (98-107) Carbon Dioxide Level 24 mmol/L (21-32) Anion Gap 14 (6-14) Blood Urea Nitrogen 10 mg/dL (8-26) Creatinine 0.9 mg/dL (0.7-1.3) Estimated GFR (Cockcroft-Gault) 88.3 Glucose Level 358 mg/dL (70-99) Calcium Level 8.2 mg/dL (8.5-10.1) Assessment and Plan Assessmemt and Plan Problems Medical Problems: (1) Hyperglycemia Status: Acute Comment Review of Relevant I have reviewed the following items reymundo (where applicable) has been applied. Labs Laboratory Tests Test 09/27/18 01:15 09/27/18 01:25 09/27/18 05:00 09/27/18 07:47 White Blood Count 8.8 x10^3/uL (4.0-11.0) Red Blood Count 4.96 x10^6/uL (4.30-5.70) Hemoglobin 16.4 g/dL (13.0-17.5) Hematocrit 45.6 % (39.0-53.0) Mean Corpuscular Volume 92 fL (79-100) Mean Corpuscular Hemoglobin 33 pg (25-35) Mean Corpuscular Hemoglobin Concent 36 g/dL (31-37) Red Cell Distribution Width 12.8 % (11.5-14.5) Platelet Count 233 x10^3/uL (140-400) Neutrophils (%) (Auto) 54 % (31-73) Lymphocytes (%) (Auto) 35 % (24-48) Monocytes (%) (Auto) 8 % (0-9) Eosinophils (%) (Auto) 2 % (0-3) Basophils (%) (Auto) 1 % (0-3) Neutrophils # (Auto) 4.8 x10^3uL (1.8-7.7) Lymphocytes # (Auto) 3.1 x10^3/uL (1.0-4.8) Monocytes # (Auto) 0.7 x10^3/uL (0.0-1.1) Eosinophils # (Auto) 0.2 x10^3/uL (0.0-0.7) Basophils # (Auto) 0.1 x10^3/uL (0.0-0.2) Prothrombin Time 12.3 SEC (11.7-14.0) Prothromb Time International Ratio 0.9 (0.8-1.1) D-Dimer (Larissa) 0.36 ug/mlFEU (0.00-0.50) Sodium Level 132 mmol/L (136-145) Potassium Level 4.0 mmol/L (3.5-5.1) Chloride Level 93 mmol/L (98-107) Carbon Dioxide Level 22 mmol/L (21-32) Anion Gap 17 (6-14) Blood Urea Nitrogen 10 mg/dL (8-26) Creatinine 1.0 mg/dL (0.7-1.3) Estimated GFR (Cockcroft-Gault) 78.2 BUN/Creatinine Ratio 10 (6-20) Glucose Level 498 mg/dL (70-99) Hemoglobin A1c 12.9 % (4.8-5.6) Calcium Level 8.2 mg/dL (8.5-10.1) Magnesium Level 2.2 mg/dL (1.8-2.4) Total Bilirubin 0.3 mg/dL (0.2-1.0) Aspartate Amino Transf (AST/SGOT) 24 U/L (15-37) Alanine Aminotransferase (ALT/SGPT) 26 U/L (16-63) Alkaline Phosphatase 86 U/L (46-116) Creatine Kinase 113 U/L (39-308) Creatine Kinase MB (Mass) 1.5 ng/mL (0.0-3.6) Creatine Kinase MB Relative Index 1.3 % (0-4) Troponin I Quantitative < 0.017 ng/mL (0.000-0.055) < 0.017 ng/mL (0.000-0.055) < 0.017 ng/mL (0.000-0.055) LJ-Ebu-W-Type Natriuretic Peptide 31 pg/mL (0-124) Total Protein 7.0 g/dL (6.4-8.2) Albumin 3.6 g/dL (3.4-5.0) Albumin/Globulin Ratio 1.1 (1.0-1.7) Lipase 195 U/L (73-393) Salicylates Level 4.3 mg/dL (2.8-20.0) Salicylate Last Dose Date Unk Salicylate Last Dose Time Unk Acetaminophen Level < 2 mcg/ml (10-30) Acetaminophen Last Dose Date Unk Acetaminophen Last Dose Time Unk Ethyl Alcohol Level < 10 mg/dL (0-10) Urine Collection Type Unknown Urine Color Yellow Urine Clarity Clear Urine pH 6.0 Urine Specific [place] >=1.030 Urine Protein Negative mg/dL (NEG-TRACE) Urine Glucose (UA) >=1000 mg/dL (NEG) Urine Ketones (Stick) Negative mg/dL (NEG) Urine Blood Negative (NEG) Urine Nitrite Negative (NEG) Urine Bilirubin Negative (NEG) Urine Urobilinogen Dipstick 0.2 mg/dL (0.2 mg/dL) Urine Leukocyte Esterase Negative (NEG) Urine RBC 0 /HPF (0-2) Urine WBC 0 /HPF (0-4) Urine Squamous Epithelial Cells Few /LPF Urine Bacteria 0 /HPF (0-FEW) Urine Opiates Screen Neg (NEG) Urine Methadone Screen Neg (NEG) Urine Barbiturates Neg (NEG) Urine Phencyclidine Screen Neg (NEG) Urine Amphetamine/Methamphetamine Neg (NEG) Urine Benzodiazepines Screen Neg (NEG) Urine Cocaine Screen Neg (NEG) Urine Cannabinoids Screen Neg (NEG) Urine Ethyl Alcohol Neg (NEG) Triglycerides Level 875 mg/dL (0-150) Cholesterol Level 221 mg/dL (0-200) LDL Cholesterol, Calculated mg/dL (0-100) VLDL Cholesterol, Calculated 175 mg/dL (0-40) Non-HDL Cholesterol Calculated 199 mg/dL (0-129) HDL Cholesterol 22 mg/dL (40-60) Cholesterol/HDL Ratio 10.0 Test 09/27/18 08:26 09/27/18 11:36 09/27/18 17:02 09/27/18 21:13 Glucose (Fingerstick) 249 mg/dL (70-99) 316 mg/dL (70-99) 288 mg/dL (70-99) 418 mg/dL (70-99) Test 09/28/18 00:11 09/28/18 03:25 Glucose (Fingerstick) 356 mg/dL (70-99) White Blood Count 7.6 x10^3/uL (4.0-11.0) Red Blood Count 4.90 x10^6/uL (4.30-5.70) Hemoglobin 15.9 g/dL (13.0-17.5) Hematocrit 46.1 % (39.0-53.0) Mean Corpuscular Volume 94 fL (79-100) Mean Corpuscular Hemoglobin 32 pg (25-35) Mean Corpuscular Hemoglobin Concent 34 g/dL (31-37) Red Cell Distribution Width 13.1 % (11.5-14.5) Platelet Count 207 x10^3/uL (140-400) Neutrophils (%) (Auto) 56 % (31-73) Lymphocytes (%) (Auto) 32 % (24-48) Monocytes (%) (Auto) 8 % (0-9) Eosinophils (%) (Auto) 3 % (0-3) Basophils (%) (Auto) 1 % (0-3) Neutrophils # (Auto) 4.3 x10^3uL (1.8-7.7) Lymphocytes # (Auto) 2.4 x10^3/uL (1.0-4.8) Monocytes # (Auto) 0.6 x10^3/uL (0.0-1.1) Eosinophils # (Auto) 0.2 x10^3/uL (0.0-0.7) Basophils # (Auto) 0.1 x10^3/uL (0.0-0.2) Sodium Level 135 mmol/L (136-145) Potassium Level 3.4 mmol/L (3.5-5.1) Chloride Level 97 mmol/L (98-107) Carbon Dioxide Level 24 mmol/L (21-32) Anion Gap 14 (6-14) Blood Urea Nitrogen 10 mg/dL (8-26) Creatinine 0.9 mg/dL (0.7-1.3) Estimated GFR (Cockcroft-Gault) 88.3 Glucose Level 358 mg/dL (70-99) Calcium Level 8.2 mg/dL (8.5-10.1) Laboratory Tests Test 09/27/18 11:36 09/27/18 17:02 09/27/18 21:13 09/28/18 00:11 Glucose (Fingerstick) 316 mg/dL (70-99) 288 mg/dL (70-99) 418 mg/dL (70-99) 356 mg/dL (70-99) Test 09/28/18 03:25 White Blood Count 7.6 x10^3/uL (4.0-11.0) Red Blood Count 4.90 x10^6/uL (4.30-5.70) Hemoglobin 15.9 g/dL (13.0-17.5) Hematocrit 46.1 % (39.0-53.0) Mean Corpuscular Volume 94 fL (79-100) Mean Corpuscular Hemoglobin 32 pg (25-35) Mean Corpuscular Hemoglobin Concent 34 g/dL (31-37) Red Cell Distribution Width 13.1 % (11.5-14.5) Platelet Count 207 x10^3/uL (140-400) Neutrophils (%) (Auto) 56 % (31-73) Lymphocytes (%) (Auto) 32 % (24-48) Monocytes (%) (Auto) 8 % (0-9) Eosinophils (%) (Auto) 3 % (0-3) Basophils (%) (Auto) 1 % (0-3) Neutrophils # (Auto) 4.3 x10^3uL (1.8-7.7) Lymphocytes # (Auto) 2.4 x10^3/uL (1.0-4.8) Monocytes # (Auto) 0.6 x10^3/uL (0.0-1.1) Eosinophils # (Auto) 0.2 x10^3/uL (0.0-0.7) Basophils # (Auto) 0.1 x10^3/uL (0.0-0.2) Sodium Level 135 mmol/L (136-145) Potassium Level 3.4 mmol/L (3.5-5.1) Chloride Level 97 mmol/L (98-107) Carbon Dioxide Level 24 mmol/L (21-32) Anion Gap 14 (6-14) Blood Urea Nitrogen 10 mg/dL (8-26) Creatinine 0.9 mg/dL (0.7-1.3) Estimated GFR (Cockcroft-Gault) 88.3 Glucose Level 358 mg/dL (70-99) Calcium Level 8.2 mg/dL (8.5-10.1) Medications Current Medications Aspirin ([place] Live Aspirin) 325 mg 1X ONCE PO Last administered on 09/27/18at 02:06 ; Start 09/27/18 at 01:30; Stop 09/27/18 at 01:31; Status DC Sodium Chloride 1,000 ml @ 1,000 mls/hr 1X ONCE IV Last administered on at 02:05; Start 09/27/18 at 01:45; Stop 09/27/18 at 02:44; Status DC Lorazepam (Ativan) 1 mg 1X ONCE IV Last administered on 09/27/18at 02:06; Start 09/27/18 at 01:45; Stop 09/27/18 at 01:46; Status DC Ondansetron HCl (Zofran) 4 mg PRN Q8HRS PRN IV NAUSEA/VOMITING; Start 09/27/18 at 02:00; Stop 09/28/18 at 01:59; Status DC Insulin Human Regular (HumuLIN R VIAL) 10 unit 1X ONCE SQ Last administered on 09/27/18at 02:09; Start 09/27/18 at 02:15; Stop 09/27/18 at 02:16; Status DC Insulin Human Lispro (HumaLOG) 0-5 UNITS TIDWMEALS SQ Last administered on at 08:06; Start 09/27/18 at 08:00 Dextrose (Dextrose 50%-Water Syringe) 12.5 gm PRN Q15MIN PRN IV SEE COMMENTS; Start 09/27/18 at 02:15 Acetaminophen/ Hydrocodone Bitart (Lortab 5/325) 1 tab PRN Q4HRS PRN PO PAIN MODERATE TO SEVERE Last administered on 09/28/18at 08:35; Start 09/27/18 at 04:00 Cyclobenzaprine HCl (Flexeril) 10 mg PRN TID PRN PO MUSCLE SPASMS; Start at 04:00 Acetaminophen (Tylenol) 650 mg PRN Q6HRS PRN PO MILD PAIN; Start 09/27/18 at 04: 00 Lorazepam (Ativan) 0.5 mg PRN Q6HRS PRN PO ANXIETY / AGITATION Last administered on 09/27/18at 04:37; Start 09/27/18 at 04:00; Stop 09/27/18 at 11:49; Status DC Citalopram Hydrobromide (CeleXA) 20 mg DAILY PO Last administered on 09/28/18at 08:08; Start 09/27/18 at 12:30 Docusate Sodium (Colace) 100 mg PRN BID PRN PO CONSTIPATION; Start 09/27/18 at 11:15 Metoprolol Tartrate (Lopressor) 50 mg BID PO ; Start 09/27/18 at 21:00; Stop 09/27 at 21:00; Status DC Non-Formulary Medication (Dextroamphetamine/ Amphetamine (Dextroamp-Amphet Er 20 Mg Cap)) 2 cap BID PO ; Start 09/27/18 at 21:00; Status UNV Lisinopril (Prinivil) 20 mg DAILY10 PO Last administered on 09/27/18at 12:14; Start 09/27/18 at 12:30; Stop 09/27/18 at 15:05; Status DC Polyethylene Glycol (miraLAX PACKET) 17 gm PRN TID PRN PO CONSTIPATION (2nd Choice); Start 09/28/18 at 09:00 Hydrochlorothiazide (Hydrodiuril) 25 mg DAILY10 PO Last administered on 09:06; Start 09/27/18 at 12:30 Fluoxetine HCl (PROzac) 20 mg DAILY PO Last administered on 09/28/18at 08:08; Start 09/27/18 at 12:00 Lorazepam (Ativan) 1 mg PRN Q6HRS PRN PO ANXIETY / AGITATION Last administered on 09/28/18at 06:56; Start 09/27/18 at 12:00 Lisinopril (Prinivil) 40 mg DAILY10 PO Last administered on 09/28/18 09:07; Start 09/28/18 at 10:00 Insulin Human Lispro (HumaLOG) 20 units 1X ONCE SQ Last administered on 22:10; Start 09/27/18 at 21:45; Stop 09/27/18 at 23:15; Status DC Active Scripts Active Docusate Sodium 100 Mg Capsule 1 Cap PO BID PRN Miralax (Polyethylene Glycol 3350) 119 Gm Powder 17 Gm PO TID PRN take up to 3x a day until loose stools, then take 1 capful daily as needed for constipation. Reported Citalopram Hbr (Citalopram Hydrobromide) 20 Mg Tablet 20 Mg PO DAILY Lisinopril-Hctz 20-25 Mg Tab (Lisinopril/Hydrochlorothiazide) 1 Each Tablet 1 Tab PO DAILY10 Dextroamp-Amphet Er 20 Mg Cap (Dextroamphetamine/Amphetamine) 20 Mg Cap.er.24h 2 Cap PO BID Metoprolol Tartrate 50 Mg Tablet 50 Mg PO BID Vitals/I & O Vital Sign - Last 24 Hours 09/27/18 09/27/18 09/27/18 09/27/18 11:00 12:14 19:00 20:29 Temp 97.7 97.5 97.7 97.5 Pulse 88 88 98 Resp 18 18 B/P (MAP) 137/91 (106) 137/91 142/89 (106) Pulse Ox 93 95 O2 Delivery Room Air Room Air Room Air 09/27/18 09/28/18 09/28/18 09/28/18 23:09 02:49 06:55 08:00 Temp 97.9 97.7 97.9 97.7 Pulse 71 75 71 Resp 18 18 18 B/P (MAP) 112/55 (74) 146/96 (113) 147/91 (109) Pulse Ox 93 92 97 O2 Delivery Room Air Room Air Room Air Room Air 09/28/18 09/28/18 08:35 09:07 Pulse 79 B/P (MAP) 137/77 Pulse Ox 97 O2 Delivery Room Air CRISS MENDOZA MD Sep 28, 2018 09:39
[2018-09-28] MEDS ORDERED: POTASSIUM CHLORIDE 20 MEQ TABLET.ER. PO ONE (10:30)
[2018-09-28 11:00] VITALS: BP 136/90
[2018-09-28] MEDS ORDERED: INSULIN LISPRO 300 UNITS/3 ML INSULN.PEN. SQ ONE ×2 (12:15→18:00)
[2018-09-28 14:59] VITALS: BP 131/84
[2018-09-28 19:00] VITALS: BP 131/79
[2018-09-28] MEDS: INSULIN GLARGINE 300 UNITS/3 ML INSULN.PEN. SQ SCH (21:26)
[2018-09-28 23:00] VITALS: BP 98/70
[2018-09-29 03:00] VITALS: BP 124/81
[2018-09-29] MEDS: LORazepam 1 MG TABLET PO PRN ×2 (05:50→18:04)
[2018-09-29 06:57] VITALS: BP 131/86
[2018-09-29 07:12] LABS: CALCIUM 8.8 mg/dL (8.5-10.1); CREATININE 0.6 mg/dL (0.7-1.3); GFR 140.9; POTASSIUM 3.4 mmol/L (3.5-5.1)
[2018-09-29 07:36] LABS: BASO # 0.1 x10^3/uL (0.0-0.2); BASO % 1 % (0-3); EOS # 0.2 x10^3/uL (0.0-0.7); EOS % 2 % (0-3); HEMATOCRIT 49.5 % (39.0-53.0); HEMOGLOBIN 17.4 g/dL (13.0-17.5); LYMPH # 2.9 x10^3/uL (1.0-4.8); LYMPH % 29 % (24-48); MEAN CORPUSCULAR HEMOGLOBIN 33 pg (25-35); MEAN CORPUSCULAR HGB CONC 35 g/dL (31-37); MEAN CORPUSCULAR VOLUME 94 fL (79-100); MONO # 0.7 x10^3/uL (0.0-1.1); MONO % 7 % (0-9); NEUT % 61 % (31-73); PLATELET COUNT 223 x10^3/uL (140-400); RED BLOOD COUNT 5.29 x10^6/uL (4.30-5.70); WHITE BLOOD COUNT 9.9 x10^3/uL (4.0-11.0)
[2018-09-29] MEDS: CITALOPRAM 20 MG TABLET. PO SCH (08:46)
[2018-09-29] MEDS: FLUoxetine HCL 20 MG CAPSULE PO SCH (08:46)
[2018-09-29] MEDS: hydroCHLOROthiazide 25 MG TABLET PO SCH (08:47)
[2018-09-29] MEDS: POTASSIUM CHLORIDE 20 MEQ TABLET.ER. PO SCH (08:47)
[2018-09-29] MEDS: LISINOPRIL 20 MG TABLET PO SCH (08:47)
[2018-09-29] MEDS: INSULIN LISPRO 300 UNITS/3 ML INSULN.PEN. SQ SCH ×3 (08:55→18:12)
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
[2018-09-29 11:00] VITALS: BP 145/79
[2018-09-29] MEDS ORDERED: POTASSIUM CHLORIDE 20 MEQ TABLET.ER. PO ONE (11:30)
[2018-09-29] MEDS: glyBURIDE 1.25 MG TABLET PO SCH ×2 (12:14→17:57)
[2018-09-29] MEDS: metFORMIN XR 500 MG TAB.ER.24H PO SCH (12:14)
[2018-09-29 14:51] VITALS: BP 126/70
[2018-09-29 19:00] VITALS: BP 108/61
[2018-09-29] MEDS: ATORVASTATIN CALCIUM 20 MG TABLET PO SCH (21:17)
[2018-09-29] MEDS: INSULIN GLARGINE 300 UNITS/3 ML INSULN.PEN. SQ SCH (21:23)
[2018-09-29 23:00] VITALS: BP 116/73
[2018-09-30 03:00] VITALS: BP 137/86
[2018-09-30 04:19] LABS: BASO # 0.1 x10^3/uL (0.0-0.2); BASO % 1 % (0-3); EOS # 0.2 x10^3/uL (0.0-0.7); EOS % 2 % (0-3); HEMATOCRIT 52.1 % (39.0-53.0); HEMOGLOBIN 17.8 g/dL (13.0-17.5); LYMPH % 32 % (24-48); MEAN CORPUSCULAR HEMOGLOBIN 32 pg (25-35); MEAN CORPUSCULAR HGB CONC 34 g/dL (31-37); MEAN CORPUSCULAR VOLUME 94 fL (79-100); MONO # 0.7 x10^3/uL (0.0-1.1); MONO % 8 % (0-9); NEUT # 5.5 x10^3uL (1.8-7.7); NEUT % 58 % (31-73); PLATELET COUNT 235 x10^3/uL (140-400); RED BLOOD COUNT 5.54 x10^6/uL (4.30-5.70); RED CELL DISTRIBUTION WIDTH 12.9 % (11.5-14.5); WHITE BLOOD COUNT 9.5 x10^3/uL (4.0-11.0)
[2018-09-30 04:47] LABS: CALCIUM 9.1 mg/dL (8.5-10.1); CREATININE 0.7 mg/dL (0.7-1.3); POTASSIUM 3.7 mmol/L (3.5-5.1)
[2018-09-30 07:20] VITALS: BP 122/76
[2018-09-30] MEDS: LORazepam 1 MG TABLET PO PRN ×3 (07:22→22:40)
[2018-09-30] MEDS: FLUoxetine HCL 20 MG CAPSULE PO SCH (08:09)
[2018-09-30] MEDS: glyBURIDE 1.25 MG TABLET PO SCH ×2 (08:09→18:00)
[2018-09-30] MEDS: hydroCHLOROthiazide 25 MG TABLET PO SCH (08:09)
[2018-09-30] MEDS: CITALOPRAM 20 MG TABLET. PO SCH (08:09)
[2018-09-30] MEDS: POTASSIUM CHLORIDE 20 MEQ TABLET.ER. PO SCH (08:10)
[2018-09-30] MEDS: metFORMIN XR 500 MG TAB.ER.24H PO SCH (08:10)
[2018-09-30] MEDS: LISINOPRIL 20 MG TABLET PO SCH (08:10)
[2018-09-30] MEDS: INSULIN LISPRO 300 UNITS/3 ML INSULN.PEN. SQ SCH ×3 (08:12→18:00)
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
[2018-09-30 11:40] VITALS: BP 134/85
[2018-09-30] MEDS: HYDROcodone/APAP 5/325MG 1 TAB TABLET PO PRN ×3 (11:56→22:39)
[2018-09-30 15:03] VITALS: BP 104/72
[2018-09-30 19:18] VITALS: BP 131/74
[2018-09-30] MEDS: ATORVASTATIN CALCIUM 20 MG TABLET PO SCH (20:29)
[2018-09-30] MEDS ORDERED: INSULIN GLARGINE 300 UNITS/3 ML INSULN.PEN. SQ SCH (21:00)
[2018-09-30 22:25] VITALS: BP 125/75
[2018-10-01 03:07] VITALS: BP 109/53
[2018-10-01 04:29] LABS: BASO # 0.1 x10^3/uL (0.0-0.2); BASO % 1 % (0-3); EOS # 0.2 x10^3/uL (0.0-0.7); EOS % 3 % (0-3); HEMATOCRIT 49.4 % (39.0-53.0); HEMOGLOBIN 17.1 g/dL (13.0-17.5); LYMPH # 3.2 x10^3/uL (1.0-4.8); LYMPH % 37 % (24-48); MEAN CORPUSCULAR HEMOGLOBIN 33 pg (25-35); MEAN CORPUSCULAR HGB CONC 35 g/dL (31-37); MEAN CORPUSCULAR VOLUME 94 fL (79-100); MONO # 0.6 x10^3/uL (0.0-1.1); MONO % 7 % (0-9); NEUT # 4.6 x10^3uL (1.8-7.7); NEUT % 53 % (31-73); PLATELET COUNT 218 x10^3/uL (140-400); RED BLOOD COUNT 5.28 x10^6/uL (4.30-5.70); WHITE BLOOD COUNT 8.7 x10^3/uL (4.0-11.0)
[2018-10-01 04:46] LABS: CALCIUM 8.8 mg/dL (8.5-10.1); CREATININE 0.6 mg/dL (0.7-1.3); GFR 140.9; POTASSIUM 3.5 mmol/L (3.5-5.1)
[2018-10-01 06:19] VITALS: BP 122/82
[2018-10-01] MEDS: glyBURIDE 1.25 MG TABLET PO SCH ×2 (09:25→17:24)
[2018-10-01] MEDS: CITALOPRAM 20 MG TABLET. PO SCH (09:26)
[2018-10-01] MEDS: metFORMIN XR 500 MG TAB.ER.24H PO SCH (09:26)
[2018-10-01] MEDS: FLUoxetine HCL 20 MG CAPSULE PO SCH (09:26)
[2018-10-01] MEDS: hydroCHLOROthiazide 25 MG TABLET PO SCH (09:26)
[2018-10-01] MEDS: LISINOPRIL 20 MG TABLET PO SCH (09:26)
[2018-10-01] MEDS: POTASSIUM CHLORIDE 20 MEQ TABLET.ER. PO SCH (09:27)
[2018-10-01] MEDS: HYDROcodone/APAP 5/325MG 1 TAB TABLET PO PRN (09:28)
[2018-10-01] MEDS: INSULIN LISPRO 300 UNITS/3 ML INSULN.PEN. SQ SCH ×3 (09:32→16:32)
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
[2018-10-01 11:00] VITALS: BP 107/77
[2018-10-01] MEDS: LORazepam 1 MG TABLET PO PRN ×2 (12:34→19:38)
[2018-10-01 15:00] VITALS: BP 113/74
[2018-10-01 20:15] VITALS: BP 122/73
[2018-10-01] MEDS ORDERED: INSULIN GLARGINE 300 UNITS/3 ML INSULN.PEN. SQ SCH (21:00)
== END 2018-10-01 20:40 | DRG 638 ==
LOC: EEVIPCON 00:57 → ER 00:57 → 6 SOUTH 01:48
PROVIDERS: ADMIT Internal Medicine; ATTEND Internal Medicine
DX: E11.65 Type 2 diabetes mellitus with hyperglycemia (principal); I16.1 Hypertensive emergency; R45.851 Suicidal ideations; R07.89 Other chest pain; E78.5 Hyperlipidemia, unspecified; F10.21 Alcohol dependence, in remission; F90.9 Attention-deficit hyperactivity disorder, unspecified type; F17.210 Nicotine dependence, cigarettes, uncomplicated; F41.9 Anxiety disorder, unspecified; K57.90 Diverticulosis of intestine, part unspecified, without perforation or abscess without bleeding; M19.90 Unspecified osteoarthritis, unspecified site; F32.9 Major depressive disorder, single episode, unspecified; G47.33 Obstructive sleep apnea (adult) (pediatric); E66.01 Morbid (severe) obesity due to excess calories; M48.00 Spinal stenosis, site unspecified; M54.40 Lumbago with sciatica, unspecified side; E87.6 Hypokalemia; F42.9 Obsessive-compulsive disorder, unspecified; Z86.73 Personal history of transient ischemic attack (TIA), and cerebral infarction without residual deficits; Z89.429 Acquired absence of other toe(s), unspecified side; Z88.5 Allergy status to narcotic agent; Z82.49 Family history of ischemic heart disease and other diseases of the circulatory system; Z68.33 Body mass index [BMI] 33.0-33.9, adult; Z91.19 Patient's noncompliance with other medical treatment and regimen
CPT/HCPCS: 36415; 71046; 80048; 80053; 80061; 80307; 80329; 81001; 82553; 82962; 83036; 83690; 83735; 83880; 84439; 84484; 85025; 85379; 85610; 93005; 93306; 96361; 96372; 96374; G0480; J1815; J2060; J7030; 99285-25

== ENCOUNTER → 2019-01-28 | Outpatient (CLI) | payer MEDICARE ==
[~2019-01-28] MED LIST changes: +CITA20TA6 PO
--- NOTE | 2019-01-28 15:54 | RAD ---
MR of the right shoulder HISTORY: Right shoulder pain after injury. TECHNIQUE: Routine multiplanar sequences are obtained. FINDINGS: The acromioclavicular joint is degenerative and mildly hypertrophic. Rotator cuff demonstrates thickening with mildly increased signal. No measurable fluid gap or rupture through the rotator cuff. No significant subdeltoid bursal effusion. No significant glenohumeral joint effusion. Irregular linear T2 signal within the superior labrum compatible with a tear. No acute articular cartilage defect. Biceps tendon is intact. No bone destruction or acute fracture. No acute soft tissue abnormality. IMPRESSION: 1. Rotator cuff tendinosis without evidence of a tear. 2. Degenerative appearing tear of the superior labrum. Electronically signed by: Selvin Fernandez MD (01/28/2019 3:51 PM) [facility]
== END | disposition home or self-care (01) ==
LOC: MRI 14:08
PROVIDERS: ATTEND Family Medicine
DX: S49.81XA Other specified injuries of right shoulder and upper arm, initial encounter (principal); M89.311 Hypertrophy of bone, right shoulder; X58.XXXA Exposure to other specified factors, initial encounter; Y93.89 Activity, other specified; Y92.89 Other specified places as the place of occurrence of the external cause; Y99.8 Other external cause status
CPT/HCPCS: 73221

== ENCOUNTER → 2019-02-16 | Outpatient (CLI) | payer MEDICARE ==
--- NOTE | 2019-02-16 14:15 | KCIC ---
MR thoracic spine without contrast 02/16/2019 INDICATION: Thoracic spine pain. Continued pain between shoulder blades. COMPARISON: None available TECHNIQUE: Of the lenny, multisequence MR imaging of the thoracic spine was performed without intravenous contrast. FINDINGS: Alignment of the thoracic spine is normal. Vertebral body heights are maintained. Disc heights are maintained. Minimal disc desiccation is identified at T6-T7 and T7-T8. Mild Modic type I endplate degenerative changes are identified anteriorly at T4-T5, T5-T6, T6-T7 and T8-T9. Thoracic spinal cord signal intensity is normal in all sequences. At T4-T5, there is mild disc bulge without significant neuroforaminal or spinal canal stenosis. At T6-T7, there is a right central disc protrusion without significant neuroforaminal stenosis or spinal canal stenosis. At T7-T8, there is a disc bulge without significant neuroforaminal or spinal canal stenosis. At T10-T11, there is ligamentum flavum infolding resulting in mild effacement of the right lateral thecal sac. No significant spinal canal stenosis. Visualized portions of lungs appear clear. Abdominal and thoracic aorta are normal in caliber as visualized. There is a simple cyst in the medial superior pole the right kidney measuring 1.5 cm. No paraspinal soft tissue abnormality is identified. IMPRESSION: No acute fracture or malalignment of the thoracic spine. Mild multilevel degenerative disc disease is noted, as described in detail above. Electronically signed by: Jackie Tinsley MD (02/16/2019 2:12 PM) [id number]
== END | disposition home or self-care (01) ==
LOC: KCIC MRI 12:21
PROVIDERS: ATTEND Family Medicine
DX: M51.34 Other intervertebral disc degeneration, thoracic region (principal); M51.24 Other intervertebral disc displacement, thoracic region; N28.1 Cyst of kidney, acquired
CPT/HCPCS: 72146